=== PATIENT | female | born 1995 | race Caucasian/White ===

== ENCOUNTER 2019-06-14 13:36 | Inpatient (IN) | payer OTHER ==
--- NOTE | 2019-06-16 17:03 | PREOPHP ---
Date of Admission: 06/14/2019 History Of Present Illness: Ms. Palmer is a 24-year-old female, 2, para 1-0-0-1, at 40+ weeks gestation. She is admitted for elective induction of labor. Past Medical History: Please see record. Family History: Please see record. Review of Systems: She reports no recent cough, cold, fever, or chills. No recent nausea or vomiting. She denies any b reast lumps or knots. She denies any bowel or bladder issues. has been active. She denies a ny vaginal bleeding or spotting. Physical Examination: General: Reveals a pleasant female, in no apparent distress. Neck: Supple without adenopathy or thyromegaly. Lungs: Clear. Cardiac: Regular rate and rhythm without murmurs. Breasts: Not examined. Abdomen: Estimated weight of 7+ to 8+ pounds. Pelvic: Cervix noted to be 2 cm dilated, vertex at -1 to -2 station with 30% effaced cervix. Extremities: No cyanosis, clubbing, or edema. Impression: Term . Plan: Patient will be admitted for induction of labor tomorrow. She has signed a permit in my prese nce. VIMAL/MODL Voice ID: [id number]
[2019-06-17 07:11] VITALS: BMI 34.2
[2019-06-17] MEDS ORDERED: BUTORPHANOL 1 MG/ML INJ IV PRN (07:19)
[2019-06-17] MEDS ORDERED: PROMETHAZINE 25 MG/ML VIAL IV PRN (07:19)
[2019-06-17] MEDS ORDERED: CARBOPROST TROME 250 MCG/ML IM PRN ×2 (07:19→15:43)
[2019-06-17] MEDS ORDERED: Ringers Lactate 1,000 ML IV PRN (07:19)
[2019-06-17] MEDS ORDERED: METHYLERGONOVINE 0.2MG/ML AMP IM PRN ×2 (07:19→15:43)
[2019-06-17] MEDS ORDERED: OXYTOCIN/LR 20 UNIT/1,000 ML BAG IV ONE (07:36)
--- NOTE | 2019-06-17 07:57 | P.PN ---
Date of Service: 06/17/19 AROM by placement of FSE. Cx 3 cm, 60%, vtx minus one/two station.
[2019-06-17 08:00] LABS: Absolute Lymphocytes (CBC) 1.7 K/uL (0.7-4.9); Basophils % 0.2 % (0-1.3); Hematocrit 29.8 % (36.0-45.0); Lymphocytes % 12.7 % (15.3-44.8); MPV 7.8 fL (7.6-11.3)
[2019-06-17] MEDS ORDERED: OXYTOCIN/LR 20 UNIT/1,000 ML BAG IV SCH ×2 (08:00→16:00)
[2019-06-17] MEDS ORDERED: INFLUENZA VACCINE (for 3y+) 0.5 ML DOSE IMVAC ONE (08:00)
[2019-06-17] MEDS ORDERED: Ringers Lactate 1,000 ML IV SCH (08:00)
[2019-06-17 08:50] LABS: Urine Appearance CLEAR; Urine Bilirubin NEGATIVE (NEG); Urine Blood 1+ (NEG); Urine Color YELLOW; Urine Glucose NEGATIVE (NEG); Urine Protein NEGATIVE (NEG); Urine Urobilinogen 0.2 mg/dL (0.2-1.0); Urine pH 6.5 (5.0-7.0)
[2019-06-17 08:55] LABS: Urine Microscopic Reflex ORDER UMIC
[2019-06-17 09:14] LABS: Urine Bacteria 20-50 /HPF (<20)
[2019-06-17 09:15] LABS: Urine Culture Reflex Order REFLEXED; Urine Mucus 1+ /HPF (NONE SEEN)
[2019-06-17] MEDS ORDERED: LIDOCAINE 1% MPF 30 ML VIAL ONE (13:49)
[2019-06-17] MEDS ORDERED: ONDANSETRON 4 MG (ODT) TAB PO PRN (15:43)
[2019-06-17] MEDS ORDERED: IBUPROFEN 200 MG TAB PO PRN (15:43)
[2019-06-17] MEDS ORDERED: METHYLERGONOVINE 0.2 MG TAB PO PRN (15:43)
[2019-06-17] MEDS ORDERED: Oxycodone HCl/Acetaminophen 1 TAB TAB PO PRN (15:43)
--- NOTE | 2019-06-17 15:46 | P.BOP ---
Preoperative diagnosis: 40+wk Postoperative diagnosis: same, viable female infant Primary procedure: SCVD Secondary procedure: repair 2 degree midline laceration Estimated blood loss: 300 Anesthesia: Local Complications: None Transferred to: Other (271) Condition: Good
[2019-06-17 23:59] LABS: RPR (Rapid Plasma Reagin) NON-REACT (NON-REACT)
[2019-06-18] MEDS ORDERED: SENOSIDES 8.6 MG TAB PO ONE (09:25)
[2019-06-18] MEDS ORDERED: INFLUENZA VACCINE (for 3y+) 0.5 ML DOSE IMVAC ONE (16:34)
[2019-06-18 17:38] VITALS: BP 121/69; TEMP 97
[2019-06-21 22:45] LABS: HBsAG Nonreactive (Nonreactive)
== END 2019-06-18 18:20 | disposition home or self-care (01) | DRG 807 ==
LOC: 2ND-WC 06-17 06:20
PROVIDERS: ADMIT Specialist; ATTEND Specialist
PROC: 10E0XZZ Delivery of Products of Conception, External Approach (ICD-10-PCS; principal; 2019-06-17)
PROC: 0KQM0ZZ Repair Perineum Muscle, Open Approach (ICD-10-PCS; 2019-06-17)
PROC: 10907ZC Drainage of Amniotic Fluid, Therapeutic from Products of Conception, Via Natural or Artificial Opening (ICD-10-PCS; 2019-06-17)
DX: O70.1 Second degree perineal laceration during delivery (principal); Z37.0 Single live birth; Z3A.40 40 weeks gestation of pregnancy
CPT/HCPCS: 36415; 81003; 81015; 85014; 85025; 86592; 86901; 87086; 87088; 87340; 90471; J0595; J2210; J2550; J2590; J7120; Q2035